=== PATIENT | male | born 2005 | race Hispanic/Latino ===

== ENCOUNTER 2025-03-03 09:33 | Emergency (ER) | payer OTHER ==
[2025-03-03 10:20] LABS: Absolute Basophils 0.1 K/uL (0-0.5); Absolute Eosinophils 0.9 K/uL (0-0.5); Absolute Lymphocytes (CBC) 1.9 K/uL (0.7-4.9); Absolute Monocytes 0.4 K/uL (0.1-1.3); Absolute Neutrophil 3.9 K/uL (1.8-8.0); Eosinophils % 12.8 % (0-4.4); Hematocrit 44.3 % (39.6-49.0); Hemoglobin 15.5 g/dL (13.6-17.9); Lymphocytes % 26.7 % (15.3-44.8); MCH 29.5 pg (27.0-35.0); MCHC 34.9 g/dL (32.0-36.0); MCV 84.5 fL (80-100); MPV 7.8 fL (7.6-11.3); Monocytes % 5.3 % (3.3-12.3); Neutrophils % 54.2 % (41.7-73.7); Platelets 336 thou/uL (152-406); RBC Red Blood Cell Count 5.25 M/uL (4.33-5.43); Red Cell Distribution Width 14.6 % (12.1-15.2)
[2025-03-03 10:25] LABS: Specific Gravity 1.016 (1.005-1.030); Sqamous Epithelial None Seen /HPF (None Seen); Urine Bacteria None Seen /HPF (<20); Urine Bilirubin NEGATIVE (Negative); Urine Blood Negative (Negative); Urine Clarity Turbid (Clear); Urine Color Light-Yellow (Yellow); Urine Crystals Unidentified Few /HPF (None Seen); Urine Culture Reflex Order NOT NEEDED; Urine Glucose NEGATIVE (Negative); Urine Ketones NEGATIVE (Negative); Urine Microscopic Reflex YN ORDER UMIC; Urine Mucus Slight /HPF (None Seen); Urine Nitrite NEGATIVE (Negative); Urine Protein NEGATIVE (Negative); Urine RBC <5 /HPF (None Seen); Urine Urobilinogen Normal (Normal); Urine WBC <5 /HPF (<5); Urine pH 7.5 (5.0-7.0)
[2025-03-03 10:37] LABS: PT Prothrombin Time 12.4 SECONDS (10-13.0); PTT, Activated Partial Thromb 29.4 SECONDS (27.2-37.4); Protime INR 1.09
[2025-03-03 10:42] LABS: Barbiturates NEGATIVE (NEGATIVE); Benzodiazepines NEGATIVE (NEGATIVE); Cocaine NEGATIVE (NEGATIVE); METHAMPHETAM NEGATIVE (NEGATIVE); Methadone NEGATIVE (NEGATIVE); Opiates NEGATIVE (NEGATIVE); Phencyclidine NEGATIVE (NEGATIVE); THC Cannibis NEGATIVE (NEGATIVE)
[2025-03-03 11:06] LABS: ALT/SGPT 32 U/L (16-61); AST/SGOT 16 U/L (15-37); Albumin/Globulin Ratio 1.1 (1.1-1.8); Alkaline Phosphatase 89 U/L (45-117); Anion Gap 9.4 mEq/L (5.0-15.0); BUN Blood Urea Nitrogen 8 mg/dL (7-18); Bicarbonate 21 mEq/L (21-32); Bilirubin Total 0.3 mg/dL (0.2-1.0); Globulin 3.8 g/dL (2.3-3.5); Glomerular Filtration Rate 110 ml/min (=/>90); Glucose Level 97 mg/dL (74-106); Potassium 3.4 mEq/L (3.5-5.1); Protein, Total 7.8 g/dL (6.4-8.2); Sodium Level 137 mEq/L (136-145)
[2025-03-03 11:07] LABS: Bilirubin Direct < 0.2 mg/dL (0-0.2); Bilirubin Indirect, Calculated 0.1 mg/dL (0.2-0.8)
--- NOTE | 2025-03-03 11:24 | ER ---
Nurse's Notes [facility] Name: Marvel Sotelo Age: 19 yrs Sex: Male : 2005 Arrival Date: 03/03/2025 Time: 09:33 Bed 17 Private MD: Diagnosis: Schizophrenia, unspecified;Schizoaffective disorder, depressive type Presentation: 03/03 09:51 Chief complaint: Parent and/or Guardian states: "He has been having anger issues for ss the past 1-2 weeks." Pt denies SI/ HI at this time. Coronavirus screen: Client denies travel out of the [place] in the last 14 days. Ebola Screen: Patient denies exposure to infectious person. Patient denies travel to an Ebola-affected area in the 21 days before illness onset. Initial Sepsis Screen: Does the patient meet any 2 criteria? No. Patient's initial sepsis screen is negative. Does the patient have a suspected source of infection? No. Patient's initial sepsis screen is negative. Risk Assessment: Do you want to hurt yourself or someone else? Patient reports no desire to harm self or others. Onset of symptoms was February 17, 2025. 09:51 Method Of Arrival: Ambulatory ss 09:51 Acuity: ZELDA 3 ss Triage Assessment: 09:51 General: Appears in no apparent distress. comfortable, Behavior is cooperative, bp appropriate for age, anxious. Pain: Denies pain. EENT: No deficits noted. Neuro: Level of Consciousness is awake, alert, obeys commands, Oriented to Appropriate for age. Cardiovascular: No deficits noted. Respiratory: No deficits noted. GI: No signs and/or symptoms were reported involving the gastrointestinal system. : No signs and/or symptoms were reported regarding the genitourinary system. Derm: No deficits noted. Musculoskeletal: No deficits noted. Historical: - Allergies: 09:51 No Known Allergies; ss - Home Meds: 09:51 clonidine HCl 0.1 mg Oral tablet 1 tab nightly [Active]; bupropion HCl 150 mg Oral ss Tablet, Extended Release 24 hr 1 tab daily [Active]; olanzapine 10 mg oral tablet 1 tab every day at bedtime [Active]; atomoxetine 25 mg oral capsule 1 cap daily [Active]; - PMHx: 09:51 Depressive disorder; autism; ADHD; Schizophrenia; ss - PSHx: 09:51 None; ss - Immunization history:: Adult Immunizations up to date. - Infectious Disease History:: Denies. - Social history:: Smoking status: Patient denies any tobacco usage or history of. - Family history:: not pertinent. Screenin:51 [facility] ED Fall Risk Assessment (Adult) History of falling in the last 3 months, bp including since admission No falls in past 3 months (0 pts) Confusion or Disorientation No (0 pts) Intoxicated or Sedated No (0 pts) Impaired Gait No (0 pts) Mobility Assist Device Used No (0 pt) Altered Elimination No (0 pt) Score/Fall Risk Level 0 - 2 = Low Risk Oriented to surroundings. Abuse screen: Denies threats or abuse. Denies injuries from another. Nutritional screening: No deficits noted. Tuberculosis screening: No symptoms or risk factors identified. Assessment: 09:51 General: Appears in no apparent distress. Behavior is appropriate for age, agitated, bp anxious. 11:19 Reassessment: PT REFUSING TO STAY FOR TREATMENT. PT CONTINUES TO DENY SI AND HI, AO4, bp STEADY GAIT. AMBULATORY WITH FAMILY. Psych: 11:27 [place] Suicide Severity Screening: In the past month, have you wished you were bp or wished you could go to sleep and not wake up? Patient responds "No." "In the past month, have you actually had any thoughts of killing yourself?" Patient responds "no." "In your lifetime, have you ever done anything, started to do anything, or prepared to do anything to end your life?" Patient responds "no.". Subjective: Patient's mood is irritable, Delusions are denied, Hallucinations are denied. Objective: Patient is uncooperative. Interventions: Removed personal items and placed in bag. Safety Checks: Pt denies substance abuse. Commitment: REFUSED. Vital Signs: 09:51 BP 125 / 74; Pulse 80; Resp 17; Temp 98.4(O); Pulse Ox 100% on R/A; Pain 0/10; ss 09:51 Pain Scale: Adult ED Course: 09:39 Patient arrived in ED. bp 09:40 Dwayne Paredes, LADARIUS is Primary Nurse. bp 09:41 Declan Starr MD is Attending Physician. ayad 09:51 Arm band placed on right wrist. ss 09:51 Patient has correct armband on for positive identification. bp 09:51 Initial lab(s) drawn, by me. Inserted saline lock: 22 gauge in right antecubital area, bp using aseptic technique. Blood collected. Flushed with 10 mL NS. 09:56 Triage completed. ss 11:22 No provider procedures requiring assistance completed. IV discontinued, intact, bp bleeding controlled, No redness/swelling at site. Pressure dressing applied. 11:23 Declan Starr MD is Referral Physician. [facility] 11:23 Referral Physician role handed off by Declan Starr MD [facility] 11:23 Demond Luong MD is Referral Physician. [facility] 11:44 Provided Education on: NA. bp Administered Medications: 11:28 Not Given (Patient Refused): ns 0.9% 1000 ml IV at 1000 ml once; to be given as a bolus bp over 60 minutes 11:44 Not Given (Patient Eloped): lorazepam2 mg PO once bp 11:44 Not Given (Patient Eloped): [id number] mg IM once bp Medication: 09:51 VIS not applicable for this client. bp Outcome: 11:22 Discharged to home ambulatory, with family, bp 11:22 Condition: stable 11:22 Discharge instructions given to family, Instructed on discharge instructions, follow up and referral plans. Demonstrated understanding of instructions, follow-up care, 11:24 Discharge ordered by . [facility] 11:45 Patient left the ED. bp Signatures: Declan Starr MD MD cha Blanchard, Shelby, RN RN Dwayne Frost, RN RN bp Corrections: (The following items were deleted from the chart) 11:22 11:18 Reassessment: bp bp
--- NOTE | 2025-03-03 11:24 | EDPHYS ---
Physician Documentation [facility] Name: Marvel Sotelo Age: 19 yrs Sex: Male : 2005 Arrival Date: 03/03/2025 Time: 09:33 Bed 17 Private MD: ED Physician Declan Starr HPI: 03/03 11:15 This 19 yrs old Male presents to ER via Ambulatory with complaints of Psych ayad Problem. 11:15 The patient presents to the emergency department with anxiety, paranoia, psychosis, has ayad experienced auditory hallucinations. Onset: The symptoms/episode began/occurred 3 day(s) ago. Past psychiatric history: Prior diagnosis: schizophrenia, Psychiatric medications include: none. Associated signs and symptoms: The patient has no apparent associated signs or symptoms. Severity of symptoms: At their worst the symptoms were mild in the emergency department the symptoms are unchanged. The patient has experienced similar episodes in the past, several times. Historical: - Allergies: 09:51 No Known Allergies; ss - Home Meds: 09:51 clonidine HCl 0.1 mg Oral tablet 1 tab nightly [Active]; bupropion HCl 150 mg Oral ss Tablet, Extended Release 24 hr 1 tab daily [Active]; olanzapine 10 mg oral tablet 1 tab every day at bedtime [Active]; atomoxetine 25 mg oral capsule 1 cap daily [Active]; - PMHx: 09:51 Depressive disorder; autism; ADHD; Schizophrenia; ss - PSHx: 09:51 None; ss - Immunization history:: Adult Immunizations up to date. - Infectious Disease History:: Denies. - Social history:: Smoking status: Patient denies any tobacco usage or history of. - Family history:: not pertinent. ROS: 11:15 Constitutional: Negative for fever, chills, and weight loss, Eyes: Negative for injury, ayad pain, redness, and discharge, ENT: Negative for injury, pain, and discharge, Neck: Negative for injury, pain, and swelling, Cardiovascular: Negative for chest pain, palpitations, and edema, Respiratory: Negative for shortness of breath, cough, wheezing, and pleuritic chest pain, Abdomen/GI: Negative for abdominal pain, nausea, vomiting, diarrhea, and constipation, Back: Negative for injury and pain, : Negative for injury, bleeding, discharge, and swelling, MS/Extremity: Negative for injury and deformity, Skin: Negative for injury, rash, and discoloration, Neuro: Negative for headache, weakness, numbness, tingling, and seizure, Allergy/Immunology: Negative for hives, rash, and allergies, Endocrine: Negative for neck swelling, polydipsia, polyuria, polyphagia, and marked weight changes, Hematologic/Lymphatic: Negative for swollen nodes, abnormal bleeding, and unusual bruising, 11:15 Psych: Positive for anxiety, auditory hallucinations, Exam: 11:15 Constitutional: This is a well developed, well nourished patient who is awake, alert, ayad and in no acute distress. Head/Face: Normocephalic, atraumatic. Eyes: Pupils equal round and reactive to light, extra-ocular motions intact. Lids and lashes normal. Conjunctiva and sclera are non-icteric and not injected. Cornea within normal limits. Periorbital areas with no swelling, redness, or edema. ENT: Nares patent. No nasal discharge, no septal abnormalities noted. Tympanic membranes are normal and external auditory canals are clear. Oropharynx with no redness, swelling, or masses, exudates, or evidence of obstruction, uvula midline. Mucous membranes moist. Neck: Trachea midline, no thyromegaly or masses palpated, and no cervical lymphadenopathy. Supple, full range of motion without nuchal rigidity, or vertebral point tenderness. No Meningismus. Chest/axilla: Normal chest wall appearance and motion. Nontender with no deformity. No lesions are appreciated. Cardiovascular: Regular rate and rhythm with a normal S1 and S2. No gallops, murmurs, or rubs. Normal PMI, no JVD. No pulse deficits. Respiratory: Lungs have equal breath sounds bilaterally, clear to auscultation and percussion. No rales, rhonchi or wheezes noted. No increased work of breathing, no retractions or nasal flaring. Abdomen/GI: Soft, non-tender, with normal bowel sounds. No distension or tympany. No guarding or rebound. No evidence of tenderness throughout. Back: No spinal tenderness. No costovertebral tenderness. Full range of motion. Male : Normal genitalia with no discharge or lesions. Skin: Warm, dry with normal turgor. Normal color with no rashes, no lesions, and no evidence of cellulitis. MS/ Extremity: Pulses equal, no cyanosis. Neurovascular intact. Full, normal range of motion., bilateral aka Neuro: Awake and alert, GCS 15, oriented to person, place, time, and situation. Cranial nerves II-XII grossly intact. Motor strength 5/5 in all extremities. Sensory grossly intact. Cerebellar exam normal. Normal gait. 11:15 Psych: Behavior/mood is anxious, uncooperative, Affect is flat, Oriented to person, place, Patient has no thoughts/intents to harm self or others. Judgement / Insight is impaired. Delusions/hallucinations 11:25 ECG was reviewed by the Attending Physician. [facility] Vital Signs: 09:51 BP 125 / 74; Pulse 80; Resp 17; Temp 98.4(O); Pulse Ox 100% on R/A; Pain 0/10; ss 09:51 Pain Scale: Adult ss MDM: 09:41 Medical Screening Exam initiated ayad 11:20 Differential diagnosis: drug withdrawal. acute psychotic break, depression, psychosis ayad secondary to non-compliance. Data reviewed: vital signs, nurses notes, lab test result(s), EKG, radiologic studies, plain films. Consideration of Admission/Observation Escalation of care including admission/observation considered. I considered the following discharge prescriptions or medication management in the emergency department Medications were administered in the Emergency Department. See MAR. Independent interpretation of the following test(s) in the Emergency Department EKG: See my EKG interpretation above. Test considered but Not performed: CT: no ct brain. Care significantly affected by the following chronic conditions: depression, schizo, autism. 03/03 09:42 Order name: Acetaminophen; Complete Time: 11:20 [facility] 03/03 09:42 Order name: Basic Metabolic Panel; Complete Time: 11:20 [facility] 03/03 09:42 Order name: CBC with Diff; Complete Time: 11:20 [facility] 03/03 09:42 Order name: ETOH Level; Complete Time: 11:20 [facility] 03/03 09:42 Order name: Hepatic Function; Complete Time: 11:20 [facility] 03/03 09:42 Order name: PT-INR; Complete Time: 11:20 [facility] 03/03 09:42 Order name: Ptt, Activated; Complete Time: 11:20 [facility] 03/03 09:42 Order name: Salicylate; Complete Time: 11:20 [facility] 03/03 09:42 Order name: Urinalysis w/ reflexes; Complete Time: 11:20 [facility] 03/03 09:42 Order name: Urine Drug Screen; Complete Time: 11:20 [facility] 03/03 09:42 Order name: EKG; Complete Time: 09:43 [facility] 03/03 09:42 Order name: EKG - Nurse/Tech; Complete Time: 10:13 [facility] 03/03 09:42 Order name: IV Saline Lock; Complete Time: 10:15 [facility] 03/03 09:42 Order name: Labs collected and sent; Complete Time: 10: [facility] 03/03 09:42 Order name: Suicide Precautions; Complete Time: 10:15 [facility] 03/03 09:42 Order name: Suicide Screening ([place]); Complete Time: 10:15 [facility] EC:25 Rate is 68 beats/min. Rhythm is regular. QRS [place] is Normal. CA interval is normal. QRS ayad interval is normal. QT interval is normal. No Q waves. T waves are Normal. No ST changes noted. Clinical impression: Normal ECG and No evidence of ischemia. Interpreted by me. Reviewed by me. Administered Medications: 11:28 Not Given (Patient Refused): ns 0.9% 1000 ml IV at 1000 ml once; to be given as a bolus bp over 60 minutes 11:44 Not Given (Patient Eloped): lorazepam2 mg PO once bp 11:44 Not Given (Patient Eloped): [id number] mg IM once bp Disposition Summary: 03/03/25 11:24 Discharge Ordered Notes: Location: Home ayad Problem: new ayad Symptoms: have improved ayad Condition: Stable ayad Diagnosis - Schizophrenia, unspecified ayad - Schizoaffective disorder, depressive type ayad Followup: ayad - With: Private Physician - When: 2 - 3 days - Reason: Recheck today's complaints, Continuance of care, Re-evaluation by your physician Followup: ayad - With: Demond Luong MD - When: Upon discharge from the Emergency Department - Reason: Recheck today's complaints, Re-evaluation by your physician Discharge Instructions: - Discharge Summary Sheet ayad - Schizophrenia ayad - Schizoaffective Disorder ayad - Psychosis ayad - Supporting Someone With Schizophrenia ayad - Managing Schizophrenia ayad - Supporting Someone With Schizoaffective Disorder ayad - Managing Schizoaffective Disorder ayad Forms: - Medication Reconciliation Form ayad - Antibiotic Education ayad - Prescription Opioid Use ayad - Patient Portal Instructions ayad - Leadership Thank You Letter ayad Signatures: Dispatcher [employer] EDMS Matty, Declan, MD MD ayad Gregg, Mily, RN RN ss Dwayne Paredes, LADARIUS RN bp
[2025-03-03 11:50] VITALS: BP 125/74; TEMP 98.4; O2SAT 100
--- NOTE | 2025-03-04 12:01 | EKG ---
Test Date: 2025-03-03 Test Time: 10:13:34 Stick Welder: SYLVIA MEASUREMENT RESULTS: Intervals: Rate: 68 MI: 112 QRSD: 96 QT: 392 QTc: 416 [place]: P: -3 MI: 112 QRS: 67 T: 40 INTERPRETIVE STATEMENTS: Normal sinus rhythm Normal ECG No previous ECG available for comparison Electronically Signed On 03-04-25 11:59:02 CDT by Shiv Mclain
== END 2025-03-03 11:45 | disposition home or self-care (01) ==
LOC: ER 09:33
DX: F25.1 Schizoaffective disorder, depressive type (principal); F84.0 Autistic disorder
CPT/HCPCS: 36415; 80048; 80076; 80143; 80179; 80307; 81001; 82077; 85025; 85610; 85730; 93005; 99284

== ENCOUNTER 2025-03-03 13:51 | Emergency (ER) | payer OTHER ==
--- OUTSIDE RECORDS SUMMARY | 2025-03-03 13:57 | XMS REPORT | Continuity of Care Document ---
Author Name Unknown Address [address] [place] [address] Organization [facility] [place] Address [address] [place] [address] Care Team Providers Care Marketing Planning Manager Name Role Phone Kristin Humphries Primary Care Physician [phone] GEMINI REDDING Attending Clinician Unavailable Doctor Unassigned, [employer] Attending Clinician U navailable KRISTIN HUMPHRIES Attending Clinician Unavailable Kristin Humphries Attending Clinician KRISTIN HUMPHRIES Admitting Clinician Unavailable Payers Payer Name Policy Type Policy Number Effective Date Expirati on Date Source [facility] [id number] 2021 00:00:00 Allergies, Adverse Reactions, Alerts Allergy Name Allergy Type Status Severity Reaction(s) Onset Date Inactive Date Treating Clinician Comments Source NO KNOWN ALLERGIE S Drug Class Active [facility] Social History Social Habit Start Date Stop Date Quantity Comments Source Sex Assigned At 2003 00:00:00 2005 00:00:00 [facility] Smoking Status Start Date Stop Date Source Unknown if ever smoked [facility] Medications Ordered Medication Name Filled Medication Name Start Date Stop Date Current Medication? Ordering Clinician Indication Dosage Frequency Signature (SIG) Comments Components Source Bromfed DM 2 mg-30 mg-10 mg/5 mL oral syrup 2023-11 00:00: 00 Yes 10mg/5 mL Sony Mckinley clonidine HCl 0.1 mg tablet 2024-1 1-12 00:00: 00 Yes 1mg Sony Mckinley olanzapine 7.5 mg tablet 2023-11-12 00:00: 00 Yes 1mg Sony Mckinley Strattera 25 mg capsule 1 1-12 00:00: 00 Yes 1mg Sony Mckinley clonidine HCl 0.1 mg tablet 2023-11 0-15 00:00: 00 Yes 1mg Sony Mckinley olanzapine 7.5 mg tablet 2023-11 0-15 00:00: 00 Yes 1mg Sony Mckinley Strattera 25 mg capsule 1 0-15 00:00: 00 Yes 1mg Sony Mckinley clonidine HCl 0.1 mg tablet 0 -17 00:00: 00 Yes 1mg Sony Mckinley olanzapine 7.5 mg tablet 0 -17 00:00: 00 Yes 1mg Sony Mckinley Strattera 25 mg capsule 0 9-17 00:00: 00 Yes 1mg Sony Mckinley clonidine HCl 0.1 mg tablet 2023-0 8-20 00:00: 00 Yes 1mg Sony Mckinley olanzapine 7.5 mg tablet 0 8-20 00:00: 00 Yes 1mg Sony Mckinley Strattera 25 mg capsule 2023-0 8-20 00:00: 00 Yes 1mg Sony Mckinley clonidine HCl 0.1 mg tablet 0 -22 00:00: 00 Yes 1mg Sony Mckinley olanzapine 7.5 mg tablet 0 7-22 00:00: 00 Yes 1mg Sony Mckinley Strattera 25 mg capsule 2023-0 7-22 00:00: 00 Yes 1mg Sony Mckinley olanzapine 7.5 mg tablet 0 6-12 00:00: 00 Yes 1mg Sony Mckinley clonidine HCl 0.1 mg tablet 2023-0 6-12 00:00: 00 Yes 1mg Sony Mckinley Strattera 25 mg capsule 2023-0 6-12 00:00: 00 Yes 1mg Sony Mckinley clonidine HCl 0.1 mg tablet 2023-0 5-16 00:00: 00 Yes 1mg Sony Mckinley olanzapine 7.5 mg tablet 2023-0 5-16 00:00: 00 Yes 1mg Sony Mciknley Strattera 25 mg capsule 04-10 00:00: 00 Yes 1mg Sony F Elías clonidine HCl 0.1 mg tablet 03-18 00:00: 00 Yes 1mg Sony F Elías olanzapine 7.5 mg tablet 03-18 00:00: 00 Yes 1mg Sony F Elías Strattera 25 mg capsule 03-18 00:00: 00 Yes 1mg Sony F Elías ATOMOXETINE HCL 25 MG CAPSULE 00:00: 00 Yes Sony F Elías TAKE 1 TABLET AT BEDTIME. 00:00: 00 04-09 00:00 :00 No 1 Sony F Elías TAKE 1 TAB PO Q AM 00:00: 00 04-09 00:00 :00 No 25 Sony F Elías TAKE 1 TAB PO Q 00:00: 00 04-09 00:00 :00 No 75 Sony F Elías ATOMOXETINE HCL 25 MG CAPSULE 12-20 00:00: 00 Yes Sony F Elías TAKE 1 TAB PO Q AM 1 00:00: 00 04-09 00:00 :00 No 25 Sony F Elías TAKE 1 TAB PO Q AM 2022-11 00:00: 00 04-09 00:00 :00 No 25 Sony F Elías TAKE 1 TAB PO Q 2022-11 00:00: 00 04-09 00:00 :00 No 75 Sony F Elías TAKE 1 TABLET AT BEDTIME. 2022-11 00:00: 00 04-09 00:00 :00 No 1 Sony F Elías TAKE 1 TAB PO Q AM 2022-11 00:00: 00 04-09 00:00 :00 No 25 Sony F Elías ATOMOXETINE 25 MG 2022-11- 00:00: 00 Yes Sony F Elías TAKE 1 TAB PO Q AM 2022-11 00:00: 00 04-09 00:00 :00 No 25 Sony F Elías TAKE 1 TAB PO Q HS 2022-11 0 00:00: 00 04-09 00:00 :00 No 75 Sony F Elías TAKE 1 TABLET AT BEDTIME. 0 9-07 00:00: 00 04-09 00:00 :00 No 1 Sony F Elías TAKE 1 TAB PO Q 0 9-07 00:00: 00 04-09 00:00 :00 No 75 Sony F Elías TAKE 1 TAB PO Q HS 0 8-10 00:00: 00 04-09 00:00 :00 No 75 Sony F Elías TAKE 1 TAB PO Q HS 0 6-12 00:00: 00 04-09 00:00 :00 No 75 Sony F Elías TAKE 1 CAPSULE DAILY IN THE MORNING. 0 6-12 00:00: 00 04-09 00:00 :00 No 40 Sony F Elías CLONIDINE HYDROCHLORI DE 0.1 MG TABS 6-12 00:00: 00 04-09 00:00 :00 No Sony F Elías TAKE 1 TAB PO Q 0 5-02 00:00: 00 04-09 00:00 :00 No 75 Sony F Elías TAKE 1 CAPSULE DAILY IN THE MORNING. 0 5-02 00:00: 00 04-09 00:00 :00 No 40 Sony F Elías TAKE 1 TABLET AT BEDTIME. 0 5-02 00:00: 00 04-09 00:00 :00 No 1 Sony F Elías TAKE 1 TABLET AT BEDTIME. 0 4-03 00:00: 00 04-09 00:00 :00 No 1 Sony F Elías TAKE 1 TAB PO Q 0 4-03 00:00: 00 04-09 00:00 :00 No 75 Sony F Elías TAKE 1 CAPSULE DAILY IN THE MORNING. 0 4-03 00:00: 00 04-09 00:00 :00 No 40 Sony F Elías TAKE 1 TABLET AT BEDTIME. 0 3-07 00:00: 00 04-09 00:00 :00 No 1 Sony F Elías OLANZAPINE 7.5 MG TABS 0 3-07 00:00: 00 04-09 00:00 :00 No Sony F Elías TAKE 1 CAPSULE DAILY IN THE MORNING. 3-07 00:00: 00 04-09 00:00 :00 No 40 Sony F Elías TAKE 1 TABLET AT BEDTIME. 2-21 00:00: 00 04-09 00:00 :00 No 1 Sony F Elías TAKE 1 TAB PO Q 2- 00:00: 00 04-09 00:00 :00 No 75 Sony F Elías TAKE 1 CAPSULE DAILY IN THE MORNING. 2- 00:00: 00 04-09 00:00 :00 No 40 Sony F Elías TAKE 1 TAB PO Q 1-11 00:00: 00 04-09 00:00 :00 No 75 Sony F Elías TAKE 1 CAPSULE DAILY IN THE MORNING. 1- 00:00: 00 04-09 00:00 :00 No 40 Sony F Elías TAKE 1 CAPSULE DAILY IN THE MORNING. 2021-11 2- 00:00: 00 04-09 00:00 :00 No 40 Sony F Elías TAKE 1 TAB PO Q 2021-11 2- 00:00: 00 04-09 00:00 :00 No 75 Sony F Elías CLONIDINE HYDROCHLORI DE 0.1 MG TABS 2021-11 2- 00:00: 00 04-09 00:00 :00 No Sony F Elías CLONIDINE HYDROCHLORI DE 0.1 MG TABS 2021-11 1-03 00:00: 00 04-09 00:00 :00 No Sony F Elías OLANZAPINE 7.5 MG TABS 2021-11 1-03 00:00: 00 04-09 00:00 :00 No Sony F Elías OLANZAPINE 15 MG TABS 2021-11 0-05 00:00: 00 04-09 00:00 :00 No Sony F Elías Dose Unknown 2021-11 0-03 00:00: 00 04-09 00:00 :00 No Sony F Elías Dose Unknown 8-12 00:00: 00 Yes Sony F Elías Dose Unknown 2022-0 8-12 00:00: 00 Yes 375 Sony F Elías &lt 2022-0 8-12 00:00: 00 Yes 200 Sony F Elías &lt 2022-0 8-11 00:00: 00 Yes 40 Sony F Elías Dose Unknown 2022-0 8-11 00:00: 00 Yes 375 Sony F Elías Dose Unknown 2022-0 8-11 00:00: 00 Yes 500 Sony F Elías TAKE 1 TABLET AT BEDTIME. 2022-0 8-11 00:00: 00 Yes 1 Sony F Elías Dose Unknown 2022-0 8-11 00:00: 00 Yes Sony F Elías Dose Unknown 2022-0 8-11 00:00: 00 Yes 2 Sony F Elías Dose Unknown 2022-0 8-11 00:00: 00 Yes 6 Sony F Elías Dose Unknown 2022-0 8-11 00:00: 00 Yes 25 Sony F Elías Dose Unknown 2022-0 8-10 00:00: 00 Yes Sony F Elías Dose Unknown 2022-0 8-10 00:00: 00 Yes 375 Sony F Elías Dose Unknown 2022-0 8-10 00:00: 00 Yes 2 Sony F Elías Dose Unknown 2022-0 8-09 00:00: 00 Yes Sony F Elías Dose Unknown 2022-0 8-09 00:00: 00 Yes Sony F Elías Dose Unknown 2022-0 8-09 00:00: 00 Yes 2 Sony F Elías &lt 2022-0 8-02 00:00: 00 Yes 1 Sony F Elías &lt 2022-0 8-02 00:00: 00 Yes 375 Sony F Elías Dose Unknown 2022-0 8-02 00:00: 00 Yes 500 Sony F Elías &lt 2022-0 8-02 00:00: 00 Yes 200 Sony F Elías Dose Unknown 2022-0 7-14 00:00: 00 Yes 2 Sony F Elías &lt 2022-0 7-14 00:00: 00 Yes 200 Sony F Elías Dose Unknown 2022-0 7-14 00:00: 00 Yes 500 Sony F Elías Dose Unknown 2022-0 7-14 00:00: 00 Yes 40 Sony F Elías Dose Unknown 2022-0 7-14 00:00: 00 Yes 25 Sony F Elías Zyprexa 2.5 mg tablet 2021-0 06-06 00:00: 00 Yes 1mg Sony F Elías Zyprexa 5 mg tablet 2021-0 06-06 00:00: 00 Yes 15mg Sony F Elías clonidine HCl 0.1 mg tablet 0 06-06 00:00: 00 Yes 1mg Sony F Elías Dose Unknown 0 06-06 00:00: 00 Yes Sony F Elías Dose Unknown 0 06-06 00:00: 00 Yes 200 Sony F Elías &lt 2-0 06-06 00:00: 00 Yes 375 Sony F Elías Dose Unknown 2021-0 06-06 00:00: 00 Yes 500 Sony F Elías Dose Unknown 0 06-06 00:00: 00 Yes 6 Sony F Elías &lt 2-0 06-06 00:00: 00 Yes 4 Sony F Elías &lt 2-0 06-06 00:00: 00 Yes 40 Sony F Elías Dose Unknown 0 06-06 00:00: 00 Yes 2 Sony F Elías &lt 2-0 06-06 00:00: 00 Yes 50 Sony F Elías Dose Unknown 0 06-05 00:00: 00 Yes Sony F Elías &lt 2-0 06-02 00:00: 00 Yes 6 Sony F Elías &lt 2022-0 06-02 00:00: 00 Yes 40 Sony F Elías Dose Unknown 2021-0 06-02 00:00: 00 Yes 500 Sony F Elías Zyprexa 5 mg tablet 0 06-01 00:00: 00 Yes 15mg Sony F Elías clonidine HCl 0.1 mg tablet 0 06-01 00:00: 00 Yes 1mg Sony F Elías Vyvanse 40 mg capsule 0 06-01 00:00: 00 Yes 1mg Sony F Elías Dose Unknown 0 06-01 00:00: 00 Yes 25 Sony F Elías Dose Unknown 0 06-01 00:00: 00 Yes 2 Sony F Elías &lt 2022-0 06-01 00:00: 00 Yes 500 Sony F Elías &lt 2022-0 06-01 00:00: 00 Yes 200 Sony F Elías &lt 2022-0 - 00:00: 00 Yes 1 Sony F Elías Dose Unknown 2021-0 7- 00:00: 00 Yes 3 Sony F Elías &lt 2-0 7- 00:00: 00 Yes 375 Sony F Elías &lt 2-0 7- 00:00: 00 Yes 200 Sony F Elías &lt 2-0 7- 00:00: 00 Yes 25 Sonyscotty Mckinley Zyprexa 2.5 mg tablet 0 - 00:00: 00 Yes 1mg Osny F Elías clonidine HCl 0.1 mg tablet 0 - 00:00: 00 Yes 1mg Sony F Elías &lt 2021-0 6- 00:00: 00 Yes Sony F Elías &lt 2021-0 6- 00:00: 00 Yes Sony F Elías OLANZAPINE 0 - 00:00: 00 04-09 00:00 :00 No 25 Sony F Elías &lt 2-0 6- 00:00: 00 Yes Sony F Elías &lt 2-0 6- 00:00: 00 Yes Sony F Elías &lt 2-0 6- 00:00: 00 Yes Sony F Elías Invega 6 mg tablet,exte nded release 0 05-02 00:00: 00 Yes 1mg Sony F Elías hydroxyzine HCl 25 mg tablet 0 05-02 00:00: 00 Yes 1mg Sony F Elías &lt 2-0 6- 00:00: 00 Yes Sony F Elías PALIPERIDON E ER 2021-0 6- 00:00: 00 04-09 00:00 :00 No 6 Sony F Elías Invega 6 mg tablet,exte nded release 0 6- 00:00: 00 Yes 1mg Sony F Elías &lt 2-0 6- 00:00: 00 Yes Sony F Elías &lt 2-0 6- 00:00: 00 Yes Sony F Elías Zoloft 50 mg tablet 2021-0 5-11 00:00: 00 Yes 1mg Sony F Elías Dose Unknown 2021-0 4-21 00:00: 00 Yes Sony F Elías Zoloft 25 mg tablet 2021-0 4-05 00:00: 00 Yes 1mg Sony Mckinley Risperdal 3 mg tablet 2021-0 4-05 00:00: 00 Yes 1mg Sony Mckinley SERTRALINE 2021-0 4-05 00:00: 00 04-09 00:00 :00 No 25 Sony Mckinley RISPERIDONE 2021-0 4-05 00:00: 00 04-09 00:00 :00 No 3 Sony Mckinley Zoloft 25 mg tablet 0 3-21 00:00: 00 Yes 1mg Sony Mckinley RISPERIDONE 2021-0 3-17 00:00: 00 04-09 00:00 :00 No 1 Sony Mckinley Dose Unknown 3-14 00:00: 00 Yes Sony Mckinley BUPROPN HCL XL 3- 00:00: 00 04-09 00:00 :00 No 150 Sony Mckinley Dose Unknown 0 2-28 00:00: 00 Yes Sony Mckinley Dose Unknown 0 2-28 00:00: 00 Yes Sony Mckinley Dose Unknown 0 2-28 00:00: 00 Yes Sony Mckinley Dose Unknown 0 2-28 00:00: 00 Yes Sony Mckinley Dose Unknown 0 6-18 00:00: 00 Yes Sony Mckinley Dose Unknown 0 618 00:00: 00 Yes Sony Mckinley Dose Unknown 0 6-18 00:00: 00 Yes Sony Mckinley Wellbutrin XL 150 mg 24 hr tablet, extended release 2019-0 -04 00:00: 00 Yes 1mg Sony Mckinley trazodone 50 mg tablet 0 6-04 00:00: 00 Yes 1mg Sony Mckinley risperidone 4 mg tablet 0 6-04 00:00: 00 Yes 1mg Sony Mckinley Dose Unknown 0 -04 00:00: 00 Yes Sony Mckinley Wellbutrin XL 150 mg 24 hr tablet, extended release 0 -19 00:00: 00 Yes 1mg Sony Mckinley trazodone 50 mg tablet 0 -19 00:00: 00 Yes 1mg Sony Mckinley risperidone 4 mg tablet 04-13 00:00: 00 Yes 1mg Sony Mckinley Vyvanse 70 mg capsule 04-13 00:00: 00 Yes 1mg Sony Mckinley Dose Unknown 03-31 00:00: 00 Yes Sony Mckinley Wellbutrin XL 150 mg 24 hr tablet, extended release 03-08 00:00: 00 Yes 1mg Sony Mckinley trazodone 50 mg tablet 03-08 00:00: 00 Yes 1mg Sony Mckinley risperidone 4 mg tablet 03-08 00:00: 00 Yes 1mg Sony Mckinley Dose Unknown 03-08 00:00: 00 Yes Sony Mckinley Vital Signs Vital Name Observation Time Observation Value Comments S ource Height Measured 2024-11-05 10:51:00 69.20 inches Sony Mckinley Body Temperature 2024-11-05 10:51:00 98.10 degrees Sony Mckinley Heart Rate 2024-11-05 10:51:00 93.00 /min Mouna en Damari Elías Respiratory Rate 2024-11-05 10:51:00 18.00 /min Sony Mckinley BP Systolic 2024-11-05 10:51:00 118 mm[Hg] Step hen Damari Mckinley BP Diastolic 2024-11-05 10:51:00 78 mm[Hg] Bill phen F Elías Weight Measured 2024-11-05 10:51:00 231.20 pounds Sony Mckinley BP Systolic 2023-10-24 16:43:00 Step hen F Elías BP Diastolic 2023-10-24 16:43:00 Bill phen F Elías Weight Measured 2023-10-24 16:43:00 Sony Mckinley Height Measured 2023-10-24 16:43:00 Sony Mckinley Body Temperature 2023-10-24 16:43:00 Sony Wetzel Elías Heart Rate 2023-10-24 16:43:00 Mouna en F Elías Respiratory Rate 2023-10-24 16:43:00 Sony Mckinley BP Systolic 2023-09-19 10:50:00 Step hen F Elías BP Diastolic 2023-09-19 10:50:00 Bill phen F Elías Weight Measured 2023-09-19 10:50:00 Sony F Elías Height Measured 2023-09-19 10:50:00 Sony F Elías Body Temperature 2023-09-19 10:50:00 Sony F Elías Heart Rate 2023-09-19 10:50:00 Mouna en F Elías Respiratory Rate 2023-09-19 10:50:00 Sony F Elías BP Systolic 2023-08-02 12:57:00 Step hen F Elías BP Diastolic 2023-08-02 12:57:00 Bill phen F Elías Weight Measured 2023-08-02 12:57:00 Sony F Elías Height Measured 2023-08-02 12:57:00 Sony F Elías Body Temperature 2023-08-02 12:57:00 Sony F Elías Heart Rate 2023-08-02 12:57:00 Mouna en F Elías Respiratory Rate 2023-08-02 12:57:00 Sony F Elías BP Systolic 2022-09-28 13:09:00 Step hen F Elías BP Diastolic 2022-09-28 13:09:00 Bill phen F Elías Weight Measured 2022-09-28 13:09:00 Sony F Elías Height Measured 2022-09-28 13:09:00 69.00 inches Sony F Elías Body Temperature 2022-09-28 13:09:00 Sony F Elías Heart Rate 2022-09-28 13:09:00 Mouna en F Elías Respiratory Rate 2022-09-28 13:09:00 Sony F Elías BP Systolic 2022-06-06 17:12:00 104 mm[Hg] Step hen F Elías BP Diastolic 2022-06-06 17:12:00 68 mm[Hg] Bill phen F Elías Weight Measured 2022-06-06 17:12:00 158.00 pounds Sony F Elías Height Measured 2022-06-06 17:12:00 68.90 inches Sony F Elías Body Temperature 2022-06-06 17:12:00 97.90 degrees Sony F Elías Heart Rate 2022-06-06 17:12:00 68.00 /min Mouna en F Elías Respiratory Rate 2022-06-06 17:12:00 16.00 /min Sony F Elías BP Systolic 2022-02-13 11:49:00 117 mm[Hg] Step hen F Elías BP Diastolic 2022-02-13 11:49:00 71 mm[Hg] Bill phen F Elías Weight Measured 2022-02-13 11:49:00 156.40 pounds Sony F Elías Height Measured 2022-02-13 11:49:00 68.90 inches Sony F Elías Body Temperature 2022-02-13 11:49:00 98.70 degrees Sony F Elías Heart Rate 2022-02-13 11:49:00 68.00 /min Mouna en F Elías Respiratory Rate 2022-02-13 11:49:00 16.00 /min Sony F Elías BP Systolic 2021-08-06 16:37:00 Step hen F Elías BP Diastolic 2021-08-06 16:37:00 Bill phen F Elías Weight Measured 2021-08-06 16:37:00 140.00 pounds Sony F Elías Height Measured 2021-08-06 16:37:00 Sony F Elías Body Temperature 2021-08-06 16:37:00 Sony F Elías Heart Rate 2021-08-06 16:37:00 Mouna en F Elías Respiratory Rate 2021-08-06 16:37:00 Sony F Elías BP Systolic 2020-02-09 10:07:00 100 mm[Hg] Step hen F Elías BP Diastolic 2020-02-09 10:07:00 52 mm[Hg] Bill phen F Elías Weight Measured 2020-02-09 10:07:00 149.40 pounds Sony F Elías Height Measured 2020-02-09 10:07:00 68.90 inches Sony F Elías Body Temperature 2020-02-09 10:07:00 98.20 degrees Sony F Elías Heart Rate 2020-02-09 10:07:00 90.00 /min Mouna en F Elías Respiratory Rate 2020-02-09 10:07:00 16.00 /min Sony F Elías BP Systolic 2020-02-05 16:45:00 104 mm[Hg] Step hen F Elías BP Diastolic 2020-02-05 16:45:00 64 mm[Hg] Bill phen F Elías Weight Measured 2020-02-05 16:45:00 150.20 pounds Sony F Elías Height Measured 2020-02-05 16:45:00 68.90 inches Sony F Elías Body Temperature 2020-02-05 16:45:00 97.90 degrees Sony F Elías Heart Rate 2020-02-05 16:45:00 77.00 /min Mouna Mckinley Respiratory Rate 2020-02-05 16:45:00 16.00 /min Sony Mckinley Procedures Procedure Date / Time Performed Performing Clinicia n Source REFERRAL- REQUEST/RESPONSE 2021-09-22 05:01:00 Doctor Unassigned, [employer] [facility] XR HAND 3+ VW RIGHT 2021-09-21 21:14:00 Kristin Humphries [facility] ASSIGNMENT OF BENEFITS 2021-09-21 21:04:29 Docto r Unassigned, [employer] [facility] Encounters Start Date/Time End Date/Time Encounter Type Admission Type Attending [facility] Care Facility Care Department Encounter ID Source 2025-02-21 16:20:19 2025-02-21 16:20:19 Outpatient [facility] S[facility] [id number] Sony Mckinley 2024-11-21 15:38:12 2024-11-21 15:38:12 Outpatient SFA SFA [id number] Sony Mckinley 2024-11-05 10:44:50 2024-11-05 10:44:50 Outpatient SFA SFA [id number] Sony Mckinley 2024-11-05 00:00:00 2024-11-05 00:00:00 Outpatient Visit SFA [id number] Sony Mckinley 2024-01-24 16:57:42 2024-01-24 16:57:42 Outpatient SFA SFA [id number] Sony Mckinley 2023-10-24 15:25:37 2023-10-24 15:25:37 Outpatient SFA SFA [id number] Sony Mckinley 2023-08-30 14:05:34 2023-08-30 14:05:34 Outpatient SFA SFA [id number] Sony Mckinley 2023-08-02 12:21:03 2023-08-02 12:21:03 Outpatient SFA JUAN JOSÉ [id number] Sony Mckinley 2021-09-28 13:45:00 2021-09-28 13:45:00 Outpatient Patel REDDING [facility] [id number] [facility] 2021-09-23 08:00:00 2021-09-23 08:00:00 Outpatient Patel REDDING [facility] [id number] [facility] 2021-09-22 00:00:00 2021-09-22 00:00:00 Orders Only Doctor Unassigned, [employer] [facility] [id number] [facility] 2021-09-21 16:05:27 2021-09-21 23:59:00 Outpatient Patel [facility] [id number] [facility] 2021-09-21 16:00:00 2021-09-21 23:59:00 Hospital Encounter Kristel [facility] [id number] [facility] 2021-09-21 00:00:00 2021-09-21 00:00:00 Orders Only Doctor Unassigned, [employer] [facility] [id number] [facility] Results Test Description Test Time Test Comments Results Result Co mments Source LAURIEHN ADOUELIPID PANEL (REFL)2024-11-26 05:07:00* Test Item Value Reference Range Interpretation Comme nts CHOLESTEROL, TOTAL (test code = 95163864) 108 mg/dL <200 N HDL CHOLESTEROL (test code = 56997175) 43 mg/dL >=40 N TRIGLYCERIDES (test code = 45060324) 87 mg/dL <150 N LDL-CHOLESTEROL (test code = 72024822) 48 mg/dL (calc) N Reference range: <100 Desirable range <100 mg/dL for primary prevention; <70 mg/dL for patients with CHD or diabetic patients with > or = 2 CHD risk factors. LDL-C is now calculated using the Marcellus-Jannette calculation, which is a validated novel method providing better accuracy than the Friedewald equation in the estimation of LDL-C. Marcellus SS et al. PEDRO. 2013;310(19): 1743-0138 (http://education.BioStable /faq/PYJ488) CHOL/HDLC RATIO (test code = 52274781) 2.5 (calc) <5.0 N NON HDL CHOLESTEROL (test code = 44539758) 65 mg/dL (calc) <130 N For patients with diabetes plus 1 major ASCVD risk factor, treating to a non-HDL-C goal of <100 mg/dL (LDL-C of <70 mg/dL) is considered a therapeutic option. WILI ADOUECOMP JEANETTE [id number] 05:07:00* Test Item Value Reference Range Interpretation Comme nts GLUCOSE (test code = 57250636) 101 mg/dL 65-99 H Fasting referenc e interval For someone without known diabetes, a glucose valuebetween 100 and 125 mg/dL is consistent withprediabetes and should be confirmed with afollow-up test. UREA NITROGEN (BUN) (test code = 70015645) 6 mg/dL 7-25 L CREATININE (test code = 51708948) 0.86 mg/dL 0.60-1.24 N EGFR (test code = 54925705) 126 mL/min/1.73m2 >=60 N BUN/CREATININE RATIO (test code = 46469198) 7 (calc) 6-22 N SODIUM (test code = 13491921) 141 mmol/L 135-146 N POTASSIUM (test code = 04520641) 4.1 mmol/L 3.5-5.3 N CHLORIDE (test code = 84704483) 104 mmol/L 98-110 N CARBON DIOXIDE (test code = 44055893) 24 mmol/L 20-32 N CALCIUM (test code = 85684362) 9.5 mg/dL 8.6-10.3 N PROTEIN, TOTAL (test code = 79620359) 6.9 g/dL 6.1-8.1 N ALBUMIN (test code = 25429504) 4.6 g/dL 3.6-5.1 N GLOBULIN (test code = 99983754) 2.3 g/dL (calc) 1.9-3.7 N ALBUMIN/GLOBULIN RATIO (test code = 63961254) 2.0 (calc) 1.0-2.5 N BILIRUBIN, TOTAL (test code = 72868507) 0.5 mg/dL 0.2-1.2 N ALKALINE PHOSPHATASE (test code = 31428411) 82 U/L 36-130 N AST (test code = 55104809) 58 U/L 10-40 H ALT (test code = 71346187) 81 U/L 9-[address] [facility] ADOUEHEMOGLOBIN [id number] 05:07:00* Test Item Value Reference Range Interpretation Comme nts HEMOGLOBIN A1c (test code = 07877639) 5.3 % of total Hgb <5.7 N For the purpose of screening for the presence ofdiabetes: <5.7% Consistent with the absence of diabetes5.7-6.4% Consistent with increased risk for diabetes (prediabetes)> or =6.5% Consistent with diabetes This assay result is consistent with a decreased riskof diabetes. Currently, no consensus exists regarding use ofhemoglobin A1c for diagnosis of diabetes in children. According to [place] Diabetes Association (ADA)guidelines, hemoglobin A1c <7.0% represents optimalcontrol in non- diabetic patients. Differentmetrics may apply to specific patient populations. Standards of Medical Care in Diabetes(ADA). WILI ADOUETSH, THIRD [id number] 05:58:42* Test Item Value Reference Range Interpretation Comme nts TSH, THIRD GENERATION (test code = 2821) 0.442 UIU/ML 0.400-4.100 [id number] 05:58:42* Test Item Value Reference Range Interpretation Comme nts PROLACTIN (test code = 2800) 10.5 NG/ML 4.0-26.0 NOTE: Methodolog y is Deanna Edith Electrochemiluminescence Immunoassay (ECLIA). Values obtained with different assays/manufacturers cannot be used interchangeably. Results should not be used as sole basis to establish the presence or absence of malignancy. UNLESS OTHERWISE INDICATED, ALL TESTING PERFORMED [facility] [employer] [address] [place] [address] STOCK HANDLER: JANEE LANCE M.D. CLIA NUMBER [id number] [facility] [place]. [id number] VALPROIC [id number] 04:58:16* Test Item Value Reference Range Interpretation Comme nts VALPROIC ACID (test code = 3025) <2.8 UG/ML 50.0-125.0 L REFERENCE RANGES EPILEPSY . . . . . . . . . . . . . .UG/ML 50.0-100.0 HERBIE. . . . . . . . . . . . . . . .UG/ML 50.0-125.0 POSSIBLE TOXICITY. . . . . . . . . .UG/ML >125.0 COMPREHENSIVE METABOLIC [id number] 04:43:13* Test Item Value Reference Range Interpretation Comme nts GLUCOSE (test code = 2216) 94 MG/DL 70-99 BUN (test code = 2207) 9 MG/DL 6-20 CREATININE (test code = 2213) 0.90 MG/DL 0.70-1.30 eGFR (2020 CKD-EPI) (test code = 88308) NO CALC ML/MIN/1.73 >60 NOTE: 2020 CKD-EPI is not validated for pediatric populations. For patients less than 19 years old, consider F pediatric eGFR calculator [email or web address] [email or web address] [email or web address]_[email or web address] CALC BUN/CREAT (test code = 2234) 10 RATIO 6-28 SODIUM (test code = 2230) 142 MEQ/L 133-146 POTASSIUM (test code = 8) 4.2 MEQ/L 3.5-5.4 CHLORIDE (test code = 5) 106 MEQ/L 95-107 CARBON DIOXIDE (test code = 2206) 20 MEQ/L 19-31 CALCIUM (test code = 2209) 9.1 MG/DL 8.5-10.5 PROTEIN, TOTAL (test code = 2228) 6.9 G/DL 6.1-8.3 ALBUMIN (test code = 1) 4.5 G/DL 3.5-5.2 CALC GLOBULIN (test code = 0) 2.4 G/DL 2.0-3.5 CALC A/G RATIO (test code = 2233) 1.9 RATIO 1.0-2.6 BILIRUBIN, TOTAL (test code = 2206) 0.3 MG/DL See_Comment [Automated me ssage] The system which generated this result transmitted reference range: <=1.2. The reference range was not used to interpret this result as normal/abnormal. ALKALINE PHOSPHATASE (test code = 4) 80 U/L 65-234 AST (test code = 8) 15 U/L 9-50 ALT (test code = 2219) 10 U/L 5-50 HEPATIC FUNCTION [id number] 04:43:13* Test Item Value Reference Range Interpretation Comme nts PROTEIN, TOTAL (test code = 2228) 6.9 G/DL 6.1-8.3 ALBUMIN (test code = 1) 4.5 G/DL 3.5-5.2 BILIRUBIN, TOTAL (test code = 2206) 0.3 MG/DL See_Comment [Automated [employer]] The system which generated this result transmitted reference range: <=1.2. The reference range was not used to interpret this result as normal/abnormal. BILIRUBIN, DIRECT (test code = 2021) 0.1 MG/DL 0.0-0.3 ALKALINE PHOSPHATASE (test code = 4) 80 U/L 65-234 AST (test code = 8) 15 U/L 9-50 ALT (test code = 9) 10 U/L 5-50 HEMOGLOBIN [id number] 03:28:09* Test Item Value Reference Range Interpretation Comme nts HEMOGLOBIN A1c (test code = 12664) 5.3 % 4.2-5.6 CBC W/AUTO DIFF WITH [id number] 02:55:12* Test Item Value Reference Range Interpretation Comme nts WBC (test code = 1001) 5.9 K/UL 3.5-11.0 RBC (test code = 1002) 4.95 M/UL 4.50-6.10 HEMOGLOBIN (test code = 1003) 14.9 G/DL 13.5-17.0 HEMATOCRIT (test code = 1004) 40.6 % 40.0-51.0 MCV (test code = 1005) 82.0 fL 80.0-99.0 MCH (test code = 1006) 30.1 PG 25.0-33.0 MCHC (test code = 1007) 36.7 G/DL 31.0-36.0 H RDW (test code = 1038) 13.3 % 11.5-15.0 NEUTROPHILS (test code = 1008) 66.5 % LYMPHOCYTES (test code = 1010) 24.8 % MONOCYTES (test code = 1011) 6.3 % EOSINOPHILS (test code = 1012) 1.4 % BASOPHILS (test code = 1013) 0.8 % IMMATURE GRANULOCYTES (test code = 1036) 0.2 % NUCLEATED RBCS (test code = 1065) 0.0 /100 WBC'S See_Comment [Automated messa ge] The system which generated this result transmitted reference range: 0.0. The reference range was not used to interpret this result as normal/abnormal. PLATELET COUNT (test code = 1015) 335 K/UL 130-400 ABSOLUTE NEUTROPHILS (test code = 1066) 3.92 K/UL 1.50-7.50 ABSOLUTE LYMPHOCYTES (test code = 1067) 1.46 K/UL 1.00-4.00 ABSOLUTE MONOCYTES (test code = 1068) 0.37 K/UL 0.20-1.00 ABSOLUTE EOSINOPHILS (test code = 1040) 0.08 K/UL 0.00-0.50 ABSOLUTE BASOPHILS (test code = 1069) 0.05 K/UL 0.00-0.20 ABS IMMATURE GRANULOCYTES (test code = 1020) 0.01 K/UL 0.00-0.10 ABS NUCLEATED RBCS (test code = 18103) 0.00 K/UL 0.00-0.11 HEMOGLOBIN [id number] 00:00:00* Test Item Value Reference Range Interpretation Comme [facility] HEMOGLOBIN A1c (test code = 38368) 5.3 % Sony MckinleyCOMPREHENSIVE METABOLIC [id number] 00:00:00* Test Item Value Reference Range Interpretation Comme nts GLUCOSE (test code = 2217) 94 MG/DL BUN (test code = 2208) 9 MG/DL CREATININE (test code = 2214) 0.90 MG/DL eGFR (2020 CKD-EPI) (test code = 44188) NO CALC ML/MIN/1.73 CALC BUN/CREAT (test code = 2235) 10 RATIO SODIUM (test code = 2231) 142 MEQ/L POTASSIUM (test code = 2228) 4.2 MEQ/L CHLORIDE (test code = 2215) 106 MEQ/L CARBON DIOXIDE (test code = 2206) 20 MEQ/L CALCIUM (test code = 2209) 9.1 MG/DL PROTEIN, TOTAL (test code = 2229) 6.9 G/DL ALBUMIN (test code = 2201) 4.5 G/DL CALC GLOBULIN (test code = 2240) 2.4 G/DL CALC A/G RATIO (test code = 2234) 1.9 RATIO BILIRUBIN, TOTAL (test code = 2207) 0.3 MG/DL ALKALINE PHOSPHATASE (test code = 2204) 80 U/L AST (test code = 2218) 15 U/L ALT (test code = 2219) 10 U/L Sony MckinleyCBC W/AUTO [id number] 00:00:00* Test Item Value Reference Range Interpretation Comme nts WBC (test code = 1001) 5.9 K/UL RBC (test code = 1002) 4.95 M/UL HEMOGLOBIN (test code = 1003) 14.9 G/DL HEMATOCRIT (test code = 1004) 40.6 % MCV (test code = 1005) 82.0 fL MCH (test code = 1006) 30.1 PG MCHC (test code = 1007) 36.7 G/DL RDW (test code = 1038) 13.3 % NEUTROPHILS (test code = 1008) 66.5 % LYMPHOCYTES (test code = 1010) 24.8 % MONOCYTES (test code = 1011) 6.3 % EOSINOPHILS (test code = 1012) 1.4 % BASOPHILS (test code = 1013) 0.8 % IMMATURE GRANULOCYTES (test code = 1036) 0.2 % NUCLEATED RBCS (test code = 1065) 0.0 /100WBC'S PLATELET COUNT (test code = 1015) 335 K/UL ABSOLUTE NEUTROPHILS (test c ode = 1066) 3.92 K/UL ABSOLUTE LYMPHOCYTES (test c ode = 1067) 1.46 K/UL ABSOLUTE MONOCYTES (test cod e = 1068) 0.37 K/UL ABSOLUTE EOSINOPHILS (test c ode = 1040) 0.08 K/UL ABSOLUTE BASOPHILS (test cod e = 1069) 0.05 K/UL ABS IMMATURE GRANULOCYTES (t est code = 1020) 0.01 K/UL ABS NUCLEATED RBCS (test cod e = 88270) 0.00 K/UL Sony Callejas (HEPATIC) FUNCTION [id number] 00:00:00* Test Item Value Reference Range Interpretation Comme nts PROTEIN, TOTAL (test code = 2229) 6.9 G/DL ALBUMIN (test code = 2201) 4.5 G/DL BILIRUBIN, TOTAL (test code = 2207) 0.3 MG/DL BILIRUBIN, DIRECT (test code = 2) 0.1 MG/DL ALKALINE PHOSPHATASE (test c ode = 2204) 80 U/L AST (test code = 2218) 15 U/L ALT (test code = 2219) 10 U/L Sony F [id number] 00:00:00* Test Item Value Reference Range Interpretation Comme nts TSH, THIRD GENERATION (test code = 2821) 0.442 UIU/ML Sony MckinleyVALPROIC [id number] 00:00:00* Test Item Value Reference Range Interpretation Comme nts VALPROIC ACID (test code = 3025) <2.8 UG/ML Sony [id number] 00:00:00* Test Item Value Reference Range Interpretation Comme nts PROLACTIN (test code = 2800) 10.5 NG/ML Sony Mckinley Notes Date/Time Note Provider Source Sony Collado [facility]
[2025-03-03] MEDS ORDERED: LORAZEPAM 1 MG TABLET ONE (14:21)
[2025-03-03] MEDS ORDERED: ZIPRASIDONE MESYLA 20 MG/VIAL IM ONE (14:21)
[2025-03-03] MEDS ORDERED: WATER FOR INJ,STERILE 10 ML ONE (14:22)
--- NOTE | 2025-03-03 16:01 | ER ---
Nurse's Notes [facility] Name: Marvel Sotelo Age: 19 yrs Sex: Male : 2005 Arrival Date: 03/03/2025 Time: 13:51 Bed 20 Private MD: Diagnosis: Schizophrenia, unspecified;Other depressive episodes;Autistic disorder Presentation: 03/03 14:08 Chief complaint: [facility] officer states, "he was becoming violent in the car with his mom ss and sister, so he just needs some help." Pt denies SI/HI. Mother reports pt has been exhibiting increased aggression x 2 weeks. Coronavirus screen: Client denies travel out of the [place] in the last 14 days. Ebola Screen: Patient denies exposure to infectious person. Patient denies travel to an Ebola-affected area in the 21 days before illness onset. Initial Sepsis Screen: Does the patient meet any 2 criteria? No. Patient's initial sepsis screen is negative. Does the patient have a suspected source of infection? No. Patient's initial sepsis screen is negative. Risk Assessment: Do you want to hurt yourself or someone else? Patient reports no desire to harm self or others. Onset of symptoms is unknown. 14:08 Method Of Arrival: Law Enforcement: Blaine GUNTER 14:08 Acuity: ZELDA 3 ss Historical: - Allergies: 14:11 No Known Allergies; ss - PMHx: 14:11 adhd; Autism; depressive disorder; Schizophrenia; ss - Immunization history:: Adult Immunizations up to date. - Infectious Disease History:: Denies. - Social history:: Smoking status: Patient denies any tobacco usage or history of. Screenin:52 [facility] ED Fall Risk Assessment (Adult) History of falling in the last 3 months, me1 including since admission No falls in past 3 months (0 pts) Confusion or Disorientation No (0 pts) Intoxicated or Sedated No (0 pts) Impaired Gait No (0 pts) Mobility Assist Device Used No (0 pt) Altered Elimination No (0 pt) Score/Fall Risk Level 0 - 2 = Low Risk Maintained a safe environment, Provided non-skid footwear, Hourly rounding (assess needs \\T\\ fall precautionary measures) done. Abuse screen: Denies threats or abuse. Nutritional screening: No deficits noted. Tuberculosis screening: No symptoms or risk factors identified. Assessment: 14:13 Reassessment: [facility] officer with patient at this time. Officer states that family does ss not plan to come up here at this time, and anticipate transfer to psych facility for further evaluation and treatment. 14:40 Reassessment: Nurse to nurse done with Mar at [facility]. me1 14:52 General: Appears well groomed, well developed, well nourished, Behavior is cooperative, me1 appropriate for age, flat, quiet. Pain: Denies pain. Neuro: Level of Consciousness is awake, alert, obeys commands, Oriented to person, place, time, situation, Appropriate for age. Cardiovascular: Patient's skin is warm and dry. Respiratory: Airway is patent Respiratory effort is even, unlabored, Respiratory pattern is regular, symmetrical. GI: No signs and/or symptoms were reported involving the gastrointestinal system. : No signs and/or symptoms were reported regarding the genitourinary system. EENT: No signs and/or symptoms were reported regarding the EENT system. Derm: Skin is intact, is healthy with good turgor, Skin is pink, warm \\T\\ dry. Musculoskeletal: No signs and/or symptoms reported regarding the musculoskeletal system. Psych: 14:54 [place] Suicide Severity Screening: In the past month, have you wished you were me1 or wished you could go to sleep and not wake up? Patient responds "No." "In the past month, have you actually had any thoughts of killing yourself?" Patient responds "no." "In your lifetime, have you ever done anything, started to do anything, or prepared to do anything to end your life?" Patient responds "no.". Subjective: Patient's mood is irritable, Delusions are denied, Hallucinations are denied Denies SI/HI. Objective: Patient is uncooperative, guarded, restless, Speech is normal, Affect is flat. Interventions:. Safety Checks: Pt has been placed in a hallway bed/chair. Pt denies substance abuse. Commitment: Patient will be an involuntary commitment. Commitment papers completed. Vital Signs: 14:08 BP 123 / 87; Pulse 92; Resp 16; Pulse Ox 99% on R/A; Pain 0/10; ss 17:19 BP 121 / 72; Pulse 83; Resp 16; Temp 98.2; Pulse Ox 99% ; me1 14:08 Pain Scale: Adult ss ED Course: 13:53 Patient arrived in ED. bd 13:53 faxed chart to [facility]. bd 13:55 Declan Starr MD is Attending Physician. ayad 14:11 Triage completed. ss 14:11 Arm band placed on right wrist. ss 14:18 Johana Rahman, RN is Primary Nurse. me1 14:28 faxed chart to [facility] bd 14:52 Patient has correct armband on for positive identification. Bed in low position. Call me1 light in reach. Provided Education on: POC. Verbalized understanding.. 14:52 No provider procedures requiring assistance completed. Patient did not have IV access me during this emergency room visit. 15:05 [facility] to not being "appropriate for their hospital" bd per Mar. 15:14 faxed chart to [facility]. bd 15:32 pt denied at [facility] due to "no appropriate beds at this time" per Nico. bd 16:03 pt accepted in transfer to [facility] by dr Khoury admin approval bd given by Minnie Rosales. pt to transferred by mental health deputy. 16:19 contacted [facility] dept to have mental health deputy to transport pt to [facility]. Administered Medications: 14:29 Drug: LORazepam PO 2 mg PO once Route: PO; me1 17:21 Follow up: Response: No adverse reaction; Anxiety decreased me1 14:34 Drug: Geodon IM 20 mg IM once Route: IM; Site: right deltoid; me1 17:21 Follow up: Response: No adverse reaction; Marked relief of symptoms me1 Medication: 14:52 VIS not applicable for this client. me1 Outcome: 16:01 ER care complete, transfer ordered by . [facility] 17:19 Transferred Note: [employer]. Transferred with mental health deputy to [address] 17:19 Condition: stable 17:19 Instructed on the need for transfer, 17:21 Patient left the ED. me1 Signatures: Holli Perkins bd Declan Starr MD MD cha Blanchard, Shelby, RN RN Johana Rahman, LADARIUS RN me1 Corrections: (The following items were deleted from the chart) 14:35 14:08 Chief complaint: [facility] officer states, "he was becoming violent in the car with me1 his mom and sister, so he just needs some help." Pt denies SI/HI. Mother reports pt has been exhibiting increased aggression x 2 weeks ss 14:51 14:08 Chief complaint: [facility] officer states, "he was becoming violent in the car with me1 his mom and sister, so he just needs some help." Pt denies SI/HI. Mother reports pt has been exhibiting increased aggression x 2 weeks me1
--- NOTE | 2025-03-03 16:01 | EDPHYS ---
Physician Documentation [facility] Name: Marvel Sotelo Age: 19 yrs Sex: Male : 2005 Arrival Date: 03/03/2025 Time: 13:51 Bed 20 Private MD: ED Physician Declan Starr HPI: 03/03 15:53 This 19 yrs old Male presents to ER via Law Enforcement with complaints of ayad Psych Problem. 15:53 The patient presents to the emergency department with anxiety, depression, paranoia. ayad Onset: The symptoms/episode began/occurred 5 day(s) ago. Past psychiatric history: Prior diagnosis: depression, schizophrenia, Psychiatric medications include: none. Associated signs and symptoms: Pertinent positives; hallucinations. Severity of symptoms: At their worst the symptoms were moderate in the emergency department the symptoms are unchanged. The patient has experienced similar episodes in the past, several times. Historical: - Allergies: 14:11 No Known Allergies; ss - PMHx: 14:11 adhd; Autism; depressive disorder; Schizophrenia; ss - Immunization history:: Adult Immunizations up to date. - Infectious Disease History:: Denies. - Social history:: Smoking status: Patient denies any tobacco usage or history of. ROS: 15:53 Constitutional: Negative for fever, chills, and weight loss, Eyes: Negative for injury, ayad pain, redness, and discharge, ENT: Negative for injury, pain, and discharge, Neck: Negative for injury, pain, and swelling, Cardiovascular: Negative for chest pain, palpitations, and edema, Respiratory: Negative for shortness of breath, cough, wheezing, and pleuritic chest pain, Abdomen/GI: Negative for abdominal pain, nausea, vomiting, diarrhea, and constipation, Back: Negative for injury and pain, : Negative for injury, bleeding, discharge, and swelling, MS/Extremity: Negative for injury and deformity, Skin: Negative for injury, rash, and discoloration, Neuro: Negative for headache, weakness, numbness, tingling, and seizure, Allergy/Immunology: Negative for hives, rash, and allergies, Endocrine: Negative for neck swelling, polydipsia, polyuria, polyphagia, and marked weight changes, Hematologic/Lymphatic: Negative for swollen nodes, abnormal bleeding, and unusual bruising, 15:53 Psych: Positive for anxiety, depression, auditory hallucinations, Exam: 15:53 Constitutional: This is a well developed, well nourished patient who is awake, alert, ayad and in no acute distress. Head/Face: Normocephalic, atraumatic. Eyes: Pupils equal round and reactive to light, extra-ocular motions intact. Lids and lashes normal. Conjunctiva and sclera are non-icteric and not injected. Cornea within normal limits. Periorbital areas with no swelling, redness, or edema. ENT: Nares patent. No nasal discharge, no septal abnormalities noted. Tympanic membranes are normal and external auditory canals are clear. Oropharynx with no redness, swelling, or masses, exudates, or evidence of obstruction, uvula midline. Mucous membranes moist. Neck: Trachea midline, no thyromegaly or masses palpated, and no cervical lymphadenopathy. Supple, full range of motion without nuchal rigidity, or vertebral point tenderness. No Meningismus. Chest/axilla: Normal chest wall appearance and motion. Nontender with no deformity. No lesions are appreciated. Cardiovascular: Regular rate and rhythm with a normal S1 and S2. No gallops, murmurs, or rubs. Normal PMI, no JVD. No pulse deficits. Respiratory: Lungs have equal breath sounds bilaterally, clear to auscultation and percussion. No rales, rhonchi or wheezes noted. No increased work of breathing, no retractions or nasal flaring. Abdomen/GI: Soft, non-tender, with normal bowel sounds. No distension or tympany. No guarding or rebound. No evidence of tenderness throughout. Back: No spinal tenderness. No costovertebral tenderness. Full range of motion. Male : Normal genitalia with no discharge or lesions. Skin: Warm, dry with normal turgor. Normal color with no rashes, no lesions, and no evidence of cellulitis. MS/ Extremity: Pulses equal, no cyanosis. Neurovascular intact. Full, normal range of motion., bilateral aka Neuro: Awake and alert, GCS 15, oriented to person, place, time, and situation. Cranial nerves II-XII grossly intact. Motor strength 5/5 in all extremities. Sensory grossly intact. Cerebellar exam normal. Normal gait. 15:53 Psych: Behavior/mood is pleasant, Affect is flat, Oriented to person, place, time, Patient has no thoughts/intents to harm self or others. Judgement / Insight is normal. Delusions/hallucinations are present and described as auditory halluciations. Vital Signs: 14:08 BP 123 / 87; Pulse 92; Resp 16; Pulse Ox 99% on R/A; Pain 0/10; ss 17:19 BP 121 / 72; Pulse 83; Resp 16; Temp 98.2; Pulse Ox 99% ; me1 14:08 Pain Scale: Adult ss MDM: 13:55 Medical Screening Exam initiated ayad 15:57 Differential diagnosis: drug withdrawal. acute psychotic break, depression, psychosis ayad secondary to non-compliance. Differential Diagnosis altered mental status, sepsis, flu. Data reviewed: vital signs, nurses notes, lab test result(s), EKG. Consideration of Admission/Observation Escalation of care including admission/observation considered. I considered the following discharge prescriptions or medication management in the emergency department Medications were administered in the Emergency Department. See MAR. Independent interpretation of the following test(s) in the Emergency Department EKG: See my EKG interpretation above. Test considered but Not performed: CT: no ct brain. Historians other than the Patient: Family Member: luis. Care significantly affected by the following chronic conditions: depression , autism, adhd. Administered Medications: 14:29 Drug: LORazepam PO 2 mg PO once Route: PO; me1 17:21 Follow up: Response: No adverse reaction; Anxiety decreased me1 14:34 Drug: Geodon IM 20 mg IM once Route: IM; Site: right deltoid; me1 17:21 Follow up: Response: No adverse reaction; Marked relief of symptoms me1 Disposition Summary: 03/03/25 16:01 Transfer Ordered Notes: Transfer Location: Psych Facility ayad Reason: Higher level of care ayad Condition: Stable ayad Problem: new ayad Symptoms: have improved ayad Accepting Physician: to psych(03/03/25 17:21) me1 Diagnosis - Schizophrenia, unspecified ayad - Other depressive episodes ayad - Autistic disorder ayad Forms: - Medication Reconciliation Form ayad - SBAR form ayad Signatures: Declan Starr MD MD cha Blanchard, Shelby, RN RN ss Johana Rahman RN RN me1 Corrections: (The following items were deleted from the chart) 17:21 16:01 to psych ayad me1
[2025-03-03 17:43] VITALS: O2SAT 99
[2025-03-03 17:45] VITALS: BP 121/72; TEMP 98.2
== END 2025-03-03 17:21 ==
LOC: ER 13:51
DX: F20.9 Schizophrenia, unspecified (principal); F32.89 Other specified depressive episodes; F84.0 Autistic disorder
CPT/HCPCS: 96372; 99285; J3486